=== PATIENT | female | born 1970 ===

== ENCOUNTER 2025-02-19 13:20 | Outpatient (AMB) | payer OTHER, SELFPAY ==
--- NOTE | 2025-02-19 13:24 | A.OFFPC_ITS ---
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: No Allergies No Known Allergies Allergy (Verified 02/19/25 13:30) Medication List - Last Reconciled 02/19/25 by Sherry Trejo PA-C amlodipine 10 mg PO DAILY levothyroxine 75 mcg PO DAILY tirzepatide (Mounjaro) 2.5 mg subcut QWEEK Tobacco use date assessed: 02/25/25 Dental Screening Dental Screen Date: 02/19/25 Did you have a dental visit in the last 12 months?: Yes Did you have a dental problem in the last 6 months where you did not have access to dental care?: No Was dental information given to patient?: Patient has dentist HPI 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 She is presenting today to reestablish care and for a physical exam. CV: Blood pressure today in the office is 142/74. She is currently on amlodipine 10 mg daily. Endo: Dm-she was diagnosed 2 years ago. Last A1c was around 7. She is currently on Mounjaro 2.5 mg weekly. Checks bs daily and they are around 100. Intolerant of metformin GI distress and trulicity caused severe nausea. Hypothyroidism-on levothyroxine 75 mcg daily. Last TSH was WNL. 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 Scheduled this summer for a Pap. 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 1. Little interest or pleasure in doing things: several days 2. Feeling down, depressed, or hopeless: not at all 3. Trouble falling or staying asleep, or sleeping too much: not at all 4. Feeling tired or having little energy: several days 5. Poor appetite or overeating: not at all 6. Feeling bad about yourself - or that you are a failure or have let yourself or your family down: not at all 7. Trouble concentrating on things, such as reading the newspaper or watching television: not at all 8. Moving or speaking so slowly that other people could have noticed. Or the opposite - being so fidgety or restless that you have been moving around a lot more than usual: not at all 9. Thoughts that you would be better off or of hurting yourself in some way: not at all Total score: 2 Depression Screening Interpretation: Negative Depression Screening Done: Yes 44484 - PHQ-9 Billing: Yes Source: Developed by Drs. Dickson Lucio, Alexandra Rodriguez, Jim Bobby and colleagues, with an educational huy from [employer]. Thrive Questionnaire Date Thrive assessed: 02/19/25 I am a: Patient What is your living situation today?: I have a steady place to live Within the past 12 months, did the food you bought not last and you didn't have the money to get more?: Sometimes True Within the past 12 months, did you worry whether your food would run out before you got money to buy more?: Sometimes True Do you have trouble paying for medicines?: I choose not to answer this question Do you have trouble getting transportation to medical appointments?: No Do you have trouble paying your heating and electricity bill?: Yes Do you have trouble taking care of your child, family member or friend?: No Do you have trouble with day-to-day activities such as bathing, preparing meals, shopping, managing finances, etc.?: No Are you currently unemployed and looking for a job?: I choose not to answer this question Are you interested in more education?: I choose not to answer this question Please select the resources that you would like help with: Utilities Currently or been in a relationship where the following occur: No concerns reported THRIVE Score: 3 AUDIT C Alcohol Use Questionnaire (AUDIT-C) 1. How often do you have a drink containing alcohol?: Monthly or less 2. How many drinks containing alcohol do you have on a typical day when you are drinking?: 1 or 2 3. How often do you have six or more drinks on one occasion?: Never Total Score: 1 ELLEN-7 AMB Questionnaire ELLEN-7 Date ELLEN - 7 assessed: 02/19/25 Feeling nervous, anxious, or on edge: 1 = Several days Not being able to stop or control worryin = Not at all Worrying too much about different things: 0 = Not at all Trouble relaxin = Not at all Being so restless that it is hard to sit still: 0 = Not at all Becoming easily annoyed or irritable: 0 = Not at all Feeling afraid as if something awful might happen: 0 = Not at all Total ELLEN-7 score (0-4 normal; 5-9 mild; 10-14 moderate; 15-21 severe): 1 Source: Developed by Drs. Dickson Lucio, Alexandra Rodriguez, Jim Bobby and colleagues, with an educational huy from [employer]. ELLEN-7 Assessment Billing ELLEN-7 Assessment Tool: ELLEN-7 Assessment 84149 Physical exam (Primary Care) Depression Screening Interpretation: Negative Currently or been in a relationship where the following occur: No concerns reported Const Orientation/consciousness: patient oriented x3 HENMT Ears: hearing grossly normal bilaterally and TM's normal bilaterally General nose exam: No nasal polyps present Face and sinus: Yes sinuses nontender Mouth: Normal oral and palatal mucosa present Eyes Pupils: Equal, round and reactive pupils present EOM: EOMs intact bilaterally Neck Neck: Yes full ROM and Yes no lymphadenopathy Thyroid: Thyroid normal Chest Chest palpation & inspection: normal inspection of the chest Resp Auscultation: clear to auscultation bilaterally Cardio Rate: regular rate Rhythm: regular rhythm Heart sounds: S1 normal heart sound present and S2 normal heart sound present Peripheral pulses: Peripheral pulses 2+ throughout GI Other: Soft, nontender Auscultation: normal bowel sounds Rectal Exam - Female: deferred General: Yes no CVA tenderness Back/Spine/Pelvis Other: Nontender Back: no CVA tenderness Skin General skin exam: no rashes or lesions noted Neuro General: patient oriented x3, gait normal, CN's II-XI intact bilaterally and deep tendon reflexes 2+ bilaterally Cranial nerves: Yes Equal, round and reactive pupils present Motor exam (neuro): 5/5 motor strength present throughout Sensory Exam: double simultaneous stimulation for sensation normal Coordination: [id number] test normal and Romberg test negative Extrem General: Yes normal to inspection and Yes full ROM Psych Affect: normal affect Attitude: cooperative Thought process: Normal thought process present Thought content: Normal thought content present Insight: Good insight present (Psych) Judgement: Good judgement present (Psych) Coding Level of Care Code Est Pt Prev Care 40-64y(82260) Diagnoses Routine general medical examination at a health care facility Z00.00 Hypothyroidism, unspecified type E03.9 Hypothyroidism type: unspecified Primary hypertension I10 Hypertension type: primary hypertension Type 2 diabetes mellitus without complication, without long-term current use of insulin E11.9 Diabetes mellitus terminal carman insulin use: without fpc use Diabetes mellitus complication status: without complication Additional Codes ELLEN-7 Assessment Billing - ELLEN-7 Assessment Tool: ELLEN-7 Assessment 80467 ([id number]) PHQ-9 - 72985 - PHQ-9 Billing: Yes ([id number]) Assessment & Plan Assessment & Plan (1) Routine general medical examination at a health care facility: Code(s): Z00.00 - Encounter for general adult medical examination without abnormal findings Plan: Health maintenance reviewed. Cologuard ordered. (2) Hypothyroid: Code(s): E03.9 - Hypothyroidism, unspecified Category: Medical Qualifiers: Hypothyroidism type: unspecified Qualified Code(s): E03.9 - Hypothyroidism, unspecified Plan: TSH ordered. Continue levothyroxine (3) Hypertension: Code(s): I10 - Essential (primary) hypertension Category: Medical Qualifiers: Hypertension type: primary hypertension Qualified Code(s): I10 - Essential (primary) hypertension Plan: A little elevated above goal. States that they have been normal. We will monitor and recheck in a few months. (4) Type 2 diabetes mellitus: Code(s): E11.9 - Type 2 diabetes mellitus without complications Category: Medical Qualifiers: Diabetes mellitus terminal carman insulin use: without terminal carman use Diabetes mellitus complication status: without complication Qualified Code(s): E11.9 - Type 2 diabetes mellitus without complications Plan: Currently well-controlled with Mounjaro. I have increased the dosage. Diabetic labs ordered. Orders: Orders B Type Natriuretic Peptide Today E03.9 - Hypothyroidism, unspecified, E11.9 - Type 2 diabetes mellitus without complications, I10 - Essential (primary) hypertension Comprehensive [place]. Panel Fast Today E03.9 - Hypothyroidism, unspecified, E11.9 - Type 2 diabetes mellitus without complications, I10 - Essential (primary) hypertension Lipid Panel Today E03.9 - Hypothyroidism, unspecified, E11.9 - Type 2 diabetes mellitus without complications, I10 - Essential (primary) hypertension Hemoglobin A1c Today E03.9 - Hypothyroidism, unspecified, E11.9 - Type 2 diabetes mellitus without complications, I10 - Essential (primary) hypertension, R73.01 - Impaired fasting glucose Complete Blood Count Auto Diff Today E03.9 - Hypothyroidism, unspecified, E11.9 - Type 2 diabetes mellitus without complications, I10 - Essential (primary) hypertension Vitamin B12 and Folate Today E03.9 - Hypothyroidism, unspecified, E11.9 - Type 2 diabetes mellitus without complications, I10 - Essential (primary) hypertensi on TSH reflex Free T4 Today E03.9 - Hypothyroidism, unspecified, E11.9 - Type 2 diabetes mellitus without complications, I10 - Essential (primary) hypertension Microalbumin, Random (w Creat) Today E03.9 - Hypothyroidism, unspecified, E11.9 - Type 2 diabetes mellitus without complications, I10 - Essential (primary) hypertension Referrals Cologuard Test Z12.11 - Encounter for screening for malignant neoplasm of colon Medications: New tirzepatide (Mounjaro) 5 mg (0.5 mL) subcut QWEEK 2 mL 3RF
[2025-02-19 13:35] VITALS: BP 148/78; PULSE 71; RESP 16; O2SAT 98; BMI 45.3
[2025-02-19 13:39] VITALS: BP 142/74
--- OUTSIDE RECORDS SUMMARY | 2025-02-19 16:30 | XMS_ITS | Clinical Summary ---
Author Organization [employer] Address [address] [place] [address] Care Team Providers Care Health Claims Examiner Name Role Phone Unavailable Primary Care Provider Unavailabl e Allergies No known active allergies Medications amLODIPine (Norvasc) 10 MG tablet Take 10 mg by mouth Once per day. Active levothyroxine (Synthroid, Levoxyl) 75 MCG tablet Take 75 mcg by mouth Once per day. Active Mounjaro 2.5 MG/0.5ML solution pen-injector Inject 2.5 mg under the skin. 02/12/2024 Active Social History Tobacco Use Types Packs/Day Years Used Date Smoking Tobacco: Never Smokeless Tobacco: Never Tobacco Cessation:Counseling Given: Not Answered Alcohol Use Standard Drinks/Week Comments Yes 0 (1 standard drink = 0.6 oz pur e alcohol) wine, socially Comments Unknown Sex and Gender Information Value Date Recorded Sex Assigned at Female 05/16/2024 8:22 AM EDT Legal Sex Female 9:25 AM EDT Gender Identity Female 05/16/2024 8:22 AM EDT Sexual Orientation Don't know 05/16/2024 8: 22 AM EDT Plan of Treatment Upcoming Encounters Date Type Department Care Team (Late st Contact Info) Description 02/23/2025 10:15 AM EDT Office Visit [facility] [address] [place] [address] Health Maintenance Due Date Last Done Comments CT Colonography 1971 Colonoscopy 1971 Colorectal Cancer Screening 1971 Dental Oral Exam 1971 Dental Prophylaxis 1971 Dental X-Ray: Full Mouth 1971 Depression Screening 1971 FIT DNA/Cologuard 1971 FIT 1971 FOBT 1971 HIV Screening 1971 Lipid Panel 1971 SDOH Screening 1971 Sigmoidoscopy 1971 Alcohol/Substance Use Screening 1983 Hepatitis C Screening 1989 Hepatitis B Vaccines (1 of 3 - 19+ 3-dose series) 1990 Pap Smear 1992 Cervical Cancer Screening 2001 HPV/Cotest 2001 Mammogram 2011 Pneumococcal Vaccine: 50+ Ye ars (1 of 1 - PCV) 2021 Zoster Vaccines (1 of 2) 2021 COVID-19 Vaccine (1 - 2023-2 5 season) 2024 Influenza Vaccine (#1) 2024 Tobacco Screening 05/16/2025 05/16/2024 Dental X-Ray: Bitewings 05/17/2025 05/16/2024 DTaP/Tdap/Td Vaccines (2 - T d or Tdap) 11/04/2029 11/04/2019 RSV Patients and Pa tients Aged 60 years or older (1 - 1-dose 75+ series) 2046 HIB Vaccines Aged Out No longer eligi ble based on patient's age to complete this topic HPV Vaccines Aged Out No longer eligi ble based on patient's age to complete this topic Hepatitis A Vaccines Aged Out No long er eligible based on patient's age to complete this topic IPV Vaccines Aged Out No longer eligi ble based on patient's age to complete this topic Meningococcal Vaccine Aged Out No ortiz tom eligible based on patient's age to complete this topic RSV under 20 months Aged Out No longe r eligible based on patient's age to complete this topic Rotavirus Vaccines Aged Out No longer eligible based on patient's age to complete this topic Procedures Procedure Name Priority Date/Time Associated Diagnosis Comments BITEWING - SINGLE RADIOGRAPHIC IMAGE Routine 05/16/2024 11:30 AM EDT Symptomatic irreversible pulpitis from Last 3 Months or Most Recently Relevant to Health Maintenance Insurance [facility] MEDICAID STAND ADULT
--- OUTSIDE RECORDS SUMMARY | 2025-02-19 16:30 | XMS_ITS | Clinical Summary ---
Author Organization [facility] Address [address] [place] [address] Care Team Providers Care Block Setter Gypsum Name Role Phone Joseline Cabrales PA-C Primary Care Provider [phone] Source Comments PLEASE NOTE, if this patient is a minor, it may be UNLAWFUL to discuss sensitive information that is contained in these records (such as FAMILY PLANNING, MENTAL HEALTH or SUBSTANCE ABUSE) with the minor patient's parent or other person without the patient's specific authorization.[facility] Allergies No known active allergies Medications ascorbic acid, vitamin C, (VITAMIN C) 250 mg tabletIndication s:Iron deficiency anemia, unspecified iron deficiency anemia type Take 1 Tab by mouth 3 (three) times daily with meals 90 Tab 2 9 Active methIMAzole (TAPAZOLE) 10 mg tablet 0 Active ferrous sulfate 325 mg (65 mg iron) tabletIndication s:Iron deficiency anemia, unspecified iron deficiency anemia type Take 1 Tab by mouth 2 (two) times daily with a meal Take with orange juice. Do not take with dairy products. 180 Tab 1 0 Active blood pressure monitorIndicatio ns:Essential hypertension Use to check blood pressure daily and as needed. Dx: I10 Meds: amlodipine, valsartan, chlorthalidone, propranolol LOS: 99 1 Kit 0 Active hydrocortisone 2.5 % ointment APPLY TOPICALLY TO AFFECTED AREA ON THE NECK TWICE A DAY FOR 1 WEEK THEN BREAK FOR 1 WEEK AND REPEAT NEEDED FOR ITCH 0 Active ibuprofen 400 mg tabletIndication s:Acute midline low back pain without sciatica Take 1 Tab by mouth 3 (three) times daily Take with food 20 Tab 0 Active tranexamic acid (LYSTEDA) 650 mg tabletIndication s:Melasma Managed by dermatology 0 Active ibuprofen 800 mg tabletIndication s:Pain Take 1 Tablet by mouth 3 (three) times daily as needed for pain 30 Tablet 2 Active dexAMETHasone (DECADRON) 4 mg tabletIndication s:Pain Take 1 Tablet by mouth once daily with breakfast 7 Tablet [address] tablet Take 81 mg by mouth 1 Active oxybutynin chloride (DITROPAN-XL) 5 mg 24 hr tabletIndication s:Overactive bladder Take 1 Tablet by mouth once daily 30 Tablet 2 2 Active omeprazole (PRILOSEC) [address] capsuleIndicatio ns:Abdominal bloating with cramps,Hospital discharge follow-up Take 1 Capsule by mouth every morning before breakfast 90 Capsule 1 2 Active blood pressure test kit-largeIndica ions:Essential hypertension FOR BP MONITORING ONCE DAILY 1 Kit 2 Active lisinopriL 10 mg tabletIndication s:Essential hypertension Take 1 Tablet by mouth once daily 90 Tablet 1 3 Active atorvastatin (LIPITOR) 10 mg tabletIndication s:Elevated lipoprotein(a) Take 1 Tablet by mouth once daily 90 Tablet 1 3 Active levothyroxine (SYNTHROID, LEVOXYL) 75 mcg tabletIndication s:Hyperthyroidis m Take 1 tablet by mouth once daily 90 Tablet 4 Active amLODIPine (NORVASC) 10 mg tabletIndication s:Essential hypertension Take 1 tablet by mouth once daily 90 Tablet 4 Active metFORMIN (GLUCOPHAGE) 500 mg tabletIndication s:Type 2 diabetes mellitus without complication, without long-term current use of insulin ([facility]) TAKE 1 TABLET BY MOUTH TWICE DAILY WITH A MEAL 60 Tablet 4 Active Active Problems Problem Noted Date Diagnosed Date Encounter for gynecological examination with Papanicolaou smear of cervix 04/13/2022 Vaginal atrophy 04/13/2022 Class 3 severe obesity due t o excess calories without serious comorbidity with body mass index (BMI) of 50.0 to 59.9 in adult ([facility]) 08/02/2021 History of laparoscopic appendectomy 06/29/2021 Overview (06/29/2021): Done May Surgeon Ash Eller MD Breast cancer screening 06/12/2018 Overview (06/12/2018): 05/22/2018 [facility]- Mammogram Mld architectural distortion in the left breast. BI-RADS: 0 Recommend: further evaluation with pot compression views and ultrasound. Iron deficiency anemia 05/01/2018 Prediabetes 04/24/2018 Hyperthyroidism 04/03/2018 Overview (11/25/2020): Sees Lauryn Essential hypertension 03/26/2018 BMI 40.0-44.9, adult ([facility]) 03/26/2018 Resolved Problems Problem Noted Date Diagnosed Date Resolved Date Anemia 04/24/2018 05/01/2018 Immunizations Immunization Administration Dates Next Due TDAP 11/04/2019 Social History Tobacco Use Types Packs/Day Years Used Date Smoking Tobacco: Never Passive Smoke Exposure: Never Smokeless Tobacco: Never Tobacco Cessation:Counseling Given: Not Answered Alcohol Use Standard Drinks/Week Comments Yes 2 (1 standard drink = 0.6 oz pur e alcohol) occasinally Social Connections Answer Date Recorded Connectedness 0 01/29/2023 Financial Resource Strain Answer Date R ecorded Financial Resource Strain 0 2022 Stress Answer Date Recorded Stress 0 01/29/2023 Physical Activity Answer Date Recorded Physical Activity 0 07/21/2019 Food Insecurity Answer Date Recorded Food 0 01/29/2023 Transportation Needs Answer Date Record ed Transportation 0 01/29/2023 Housing Stability Answer Date Recorded Housing 0 01/29/2023 Safety and Environment Answer Date Saji rded Safety 0 01/29/2023 Utilities Answer Date Recorded Utilities 0 01/29/2023 Employment Answer Date Recorded Employment 0 07/21/2019 Comments No Sex and Gender Information Value Date Recorded Sex Assigned at Female 03/26/2018 7:24 AM PDT Legal Sex Female 12:27 PM PST Gender Identity Female 03/26/2018 7:24 AM PDT Sexual Orientation Straight 08/02/2021 7: 36 AM PDT Last Filed Vital Signs Vital Sign Reading Time Taken Comments Blood Pressure 132/86 05/28/2024 1:10 PM EDT Pulse 78 05/28/2024 1:10 PM EDT Temperature 36.8 ??C (98.2 ??F) 04/13/2022 1:23 PM ED T Respiratory Rate 16 03/27/2023 4:24 PM EDT Oxygen Saturation 98% 03/27/2023 4:24 PM EDT Inhaled Oxygen Concentration - - Weight 136.1 kg (300 lb) 03/27/2023 4:24 PM EDT Height 162.6 cm (5' 4 ) 03/27/2023 4:24 PM EDT Body Mass Index 51.49 03/27/2023 4:24 PM EDT Plan of Treatment Health Maintenance Due Date Last Done Comments Anxiety Screening 1971 Dental FMX/Pano 1971 Dental Perio Charting 1971 HPV Screening 1971 Imm-Hepatitis B (1 of 3 - 19 + 3-dose series) 1990 Imm-Pneumococcal (1 of 2 - PCV) 1990 CT Colonography 2016 Colonoscopy 2016 Colorectal Cancer Screening 2016 FIT/gFOBT 2016 Fecal DNA 2016 Flexible Sigmoidoscopy 2016 Imm-Zoster, Recombinant (1 of 2) 2021 Annual Preventive Care Visit 04/07/2023, 11/04/2019, 05/01/2018 TSH Monitoring 04/13/2023 04/13/2022, 09/0 05/2021, 11/04/2019, Additional history exists Breast Cancer Screening (Mammogram) 01/10/2024 01/10/2023, 12/19/2021, 12/19/2021, Additional history exists Diabetes Screening 04/05/2024 04/05/2023, 0 04/13/2022, 04/13/2022, Additional history exists Lipid Screening 04/05/2024 04/05/2023, 0507/2022, 08/02/2021, Additional history exists [id number] ( season) 2024 Imm-Influenza (#1) 2024 Alcohol and Drug Screen 11/26/2024 01/30/20 23, 04/07/2022, 03/25/2021, Additional history exists Depression Annual Screen 11/26/2024 01/29/2023, 0511/2017 Cervical Cancer Screening 04/13/2025 Pap + HPV 04/13/2025 04/13/2022 Pap Smear 04/13/2025 04/13/2022, 11/26, 12/05/2018 Tobacco Screening 05/28/2025 05/28/2024 Dental BW 05/30/2025 05/28/2024 Dental Examination 05/30/2025 05/28/2024 Dental Prophy 05/30/2025 05/28/2024 Imm-DTaP/Tdap/Td (2 - Td or Tdap) 11/04/2029 019 HIV Screening Completed 09/19/2019 Hepatitis C Screening Completed 04/05/2023 Cervical Ablation/Cold-Knife Conization Discontinued Cervical Cryotherapy Discontinued Colposcopy Discontinued Endometrial Biopsy Discontinued Excision/Leep Discontinued HPV Genotyping Discontinued Vaginal Pap Discontinued Vulvoscopy Discontinued Procedures Procedure Name Priority Date/Time Associated Diagnosis Comments BITEWINGS - FOUR RADIOGRAPHIC IMAGES Routine 05/28/2024 1:00 PM EDT Caries Full PROPHYLAXIS - ADULT Routine 05/28/2024 1:00 PM EDT Caries Full PERIODIC ORAL EVALUATION ESTABLISHED PATIENT Routine 05/28/2024 1:00 PM EDT Caries HEPATITIS C AB W/RFLX HCV RNA, QT, RT PCR Routine 04/05/2023 3:53 PM EDT Screening for viral disease HEMOGLOBIN GLYCOSYLATED A1C Routine 04/05/2023 3:53 PM EDT Prediabetes LIPID PANEL Routine 04/05/2023 3:53 PM EDT Prediabetes HISTORIC MAMMOGRAM 01/10/2023 3: 00 AM EST THINPREP PAP & HPV MRNA E6/E7 RFLX HPV 16,18/[address]/NG Routine 04/13/2022 3:27 PM EDT Encounter for gynecological examination with Papanicolaou smear of cervix THYROID PANEL WITH TSH Routine 04/13/2022 1:51 PM EDT Encounter for general adult medical examination w/o abnormal findings ANTIBODY HIV-1&HIV-2 SINGLE RESULT Routine 09/19/2019 11:50 AM EDT Screening for HIV (human immunodeficiency virus) from Last 3 Months or Most Recently Relevant to Health Maintenance Results * HEPATITIS C AB W/RFLX HCV RNA, QT, RT PCR (04/05/2023 3:53 PM EDT) HEPATITIS C ANTIBODY NON-REACT MIKAYLA NON-REACT MIKAYLA [facility] SIGNAL TO CUT-OFF 0.11 <1.00 [facility] Comment: HCV antibody was non-reactive. There is no laboratory evidence of HCV infection. In most cases, no further action is required. However, if recent HCV exposure is suspected, a test for HCV RNA (test code 79141) is suggested. For additional information please refer to http://education.Reviews42/faq/WRB40m3 (This link is being provided for informational/ educational purposes only.) Blood Blood / Unknown 04/05/2023 3 :53 PM EDT 04/05/2023 3:53 PM EDT Joseline Cabrales PA-C LAB - BLOOD DRAW Edited Resu lt - Final [facility] [address] [address], [facility] [address] [place] [address] * (ABNORMAL) HEMOGLOBIN GLYCOSYLATED A1C (04/05/2023 3:53 PM EDT) HEMOGLOBIN A1C 6.4(H) <5.7 % of total Hgb [facility] Comment: For someone without known diabetes, a hemoglobin A1c value between 5.7% and 6.4% is consistent with prediabetes and should be confirmed with a follow-up test. For someone with known diabetes, a value <7% indicates that their diabetes is well controlled. A1c targets should be individualized based on duration of diabetes, age, comorbid conditions, and other considerations. This assay result is consistent with an increased risk of diabetes. Currently, no consensus exists regarding use of hemoglobin A1c for diagnosis of diabetes for children. Blood Blood / Unknown 04/05/2023 3 :53 PM EDT 04/05/2023 3:53 PM EDT Joseline Cabrales PA-C LAB - BLOOD DRAW Edited Resu lt - Final [facility] [address] [address], [facility] [address] [address] * (ABNORMAL) LIPID PANEL (04/05/2023 3:53 PM EDT) [facility] CHOLESTEROL, TOTAL 204(H) <200 mg/dL [facility] HDL CHOLESTEROL 62 > OR = 50 mg/dL [facility] TRIGLYCERIDES 105 <150 mg/dL [facility] LDL-CHOLESTEROL 121(H) 99 mg/dL (calc) [facility] Comment: Reference range: <100 Desirable range <100 mg/dL for primary prevention; ?? <70 mg/dL for patients with CHD or diabetic patients with > or = 2 CHD risk factors. LDL-C is now calculated using the Cipriano-Silverman calculation, which is a validated novel method providing better accuracy than the Friedewald equation in the estimation of LDL-C. Cipriano SS et al. KADEEM. 2013;310(19): 2952-8263 (http://education.Insane Logic.Mobi Rider/faq/VWS169) CHOL/HDLC RATIO 3.3 <5.0 (calc) [facility] NON-HDL CHOLESTEROL 142(H) <130 mg/dL (calc) [facility] Comment: For patients with diabetes plus 1 major ASCVD risk factor, treating to a non-HDL-C goal of <100 mg/dL (LDL-C of <70 mg/dL) is considered a therapeutic option. Blood Blood / Unknown 04/05/2023 3 :53 PM EDT 04/05/2023 3:53 PM EDT Joseline Cabrales PA-C LAB - BLOOD DRAW Final Resul t [id number] [address] [address], [facility] [address] [address] * HISTORIC MAMMOGRAM (01/10/2023 3:00 AM EST) 01/10/2023 3:00 AM EST Kamaljit Leyva MD IMG MAMMO Edited Result - Final * THINPREP PAP & HPV MRNA E6/E7 RFLX HPV 16,18/[address]/NG (04/13/2022 3:27 PM EDT) CLINICAL INFORMATION See Note [facility] Comment:None given LMP See Note [facility] Comment:[id number] PREV. PAP See Note [facility] Comment:NONE GIVEN PREV. BX See Note [facility] Comment:NONE GIVEN SOURCE See Note [facility] Comment:Cervix, Endocervix STATEMENT OF ADEQUACY See Note [facility] Comment: Satisfactory for evaluation. Endocervical/transformation zone component absent. INTERPRETATION/RESU LT See Note [facility] Comment:Negative for intraep ithelial lesion or malignancy. HAT BINDER See Note [email or web address] Comment: KN, CT(ASCP) CT screening location: [address] ??[address] COMMENT [facility] HPV MRNA E6/E7 Not Detected Not Detected [facility] Comment: Methodology: Water Meter Mechanic-Mediated Amplification This assay detects E6/E7 viral messenger RNA (mRNA) from 14 high-risk HPV types (16,18,31,33,35,39,45,51,52,56,58,59,66,68). The analytical performance characteristics of this assay have been determined by [employer]. The modifications have not been cleared or approved by the FDA. This assay has been validated pursuant to the CLIA regulations and is used for clinical purposes. For additional information, please refer to http://education.Reviews42/faq/NZJ804e7 (This link if provided for information/ educational purposes only.) CHLAMYDIA TRACHOMATIS RNA, TMA NOT DETECTED NOT DETECTED [id number] NEISSERIA GONORRHOEAE RNA, TMA NOT DETECTED NOT DETECTED [id number] COMMENT [id number] Swab Cervix uteri structure / Unknown 04/13/2022 3:27 PM EDT 04/14/2022 6:39 AM EDT Narrative [id number] - 04/15/2022 11:09 PM EDT EXPLANATORY NOTE: The Pap is a screening test for cervical cancer. It is not a diagnostic test and is subject to false negative and false positive results. It is most reliable when a satisfactory sample, regularly obtained, is submitted with relevant clinical findings and history, and when the Pap result is evaluated along with historic and current clinical information. The analytical performance characteristics of this assay, when used to test SurePath(TM) specimens have been determined by [employer]. The modifications have not been cleared or approved by the FDA. This assay has been validated pursuant to the CLIA regulations and is used for clinical purposes. For additional information, please refer to https://education.Reviews42/faq/SNJ253 (This link is being provided for information/ educational purposes only.) Kelly Dawn [facility] LAB - NO BLOOD DRAW Final R esult [id number] [address] [address], [facility] [address] [address] * (ABNORMAL) THYROID PANEL WITH TSH (04/13/2022 1:51 PM EDT) TSH <0.01(L) 0.40 - 4.50 mIU/L [id number] Comment: ?Reference Range ?> or = 20 Years ??0.40-4.50 ? Ranges ?First trimester ?0.26-2.66 ?Second trimester ?? 0.55-2.73 ?Third trimester ?0.43-2.91 T-3 UPTAKE 26 22 - 35 % [facility] T-4 (THYROXINE), TOTAL 10.5 5.1 - 11.9 mcg/dL [facility] FREE T4 INDEX (T7) 2.7 1.4 - 3.8 [facility] Blood Blood / Unknown 04/13/2022 1 :51 PM EDT 04/13/2022 1:53 PM EDT Narrative [facility] - 04/14/2022 4:36 AM EDT FASTING:YES Kelly Dawn [facility] LAB - BLOOD DRAW Final Resu lt [facility] [address] [address], [facility] [address] [address] * HIV-1 & HIV-2 ANTIBODIES (09/19/2019 11:50 AM EDT) [facility] HIV 1 AND 2 ANTIBODY SCREEN NEGATIVE NEGATIVE [facility] Comment: This assay is a 4th generation assay allowing for earlier detection of HIV infection by detecting the presence of the HIV-1 p24 antigen as well as the traditional antibodies to HIV type 1 (including group O) and type 2. ??Use of a 4th generation assay is the current CDC recommendation for HIV screening. Blood specimen (specimen) Blood / Unknown 09/19/2019 11:50 AM EDT 09/19/2019 1:25 PM EDT Narrative [facility] - 09/19/2019 7:54 PM EDT [employer] [address] Palliative Care Physician - Betty Whitfield MD PT ID [id number] ORD# [id number] Chiqui Benson [facility] LAB - BLOOD DRAW Final Result [facility] [address] [place] [address], from Last 3 Months or Most Recently Relevant to Health Maintenance Insurance [employer] [address] [employer] Care Teams Block Setter Gypsum Relationship Specialty Start Date End Date Joseline Cabrales PA-C [address] [place] [address] PCP - General 05/05/22
== END 2025-02-19 14:06 | disposition home or self-care (01) ==
LOC: HO.HMCFM 13:20
PROVIDERS: PCP Physician Assistant; Visit Provider Physician Assistant
DX: Z00.00 Encounter for general adult medical examination without abnormal findings (principal); E03.9 Hypothyroidism, unspecified; I10 Essential (primary) hypertension; E11.9 Type 2 diabetes mellitus without complications

== ENCOUNTER → 2025-02-19 13:20 | Outpatient (BNVA) | payer OTHER, SELFPAY | PROVIDERS: PCP Physician Assistant; Visit Provider Physician Assistant | DX: Z00.00 Encounter for general adult medical examination without abnormal findings (principal); E03.9 Hypothyroidism, unspecified; I10 Essential (primary) hypertension; E11.9 Type 2 diabetes mellitus without complications | CPT/HCPCS: 96127 ==